=== PATIENT | female | born 1965 | race Caucasian/White ===

== ENCOUNTER 2020-08-24 15:08 | Inpatient (IN) | payer BC ==
[~2020-08-24] VITALS: Ht 165.1 cm; Wt 108.9 kg
[~2020-08-24 15:08] MED LIST: CEFD300C PO; CYAN25003 PO; GABA-689 PO; HYDR12.58 PO; LOSA-73 PO; MULT-445 PO; NAPR-514 PO; Oxycodone Hcl/Acetaminophen PO
[2020-08-24 16:13] VITALS: BP 133/80
[2020-08-24] MEDS ORDERED: BUSP10TA PO (16:15)
[2020-08-24] MEDS ORDERED: VENL150C6 PO (16:15)
[2020-08-24] MEDS ORDERED: LISI10TA16 PO (16:15)
--- NOTE | 2020-08-24 16:54 | PDOC1 ---
History and Physical Date of Admission Date of Admission DATE: 08/24/20 TIME: 16:54 Identification/Chief Complaint Chief Complaint Left 3rd distal phalanx osteomyelitis Source Source: Chart review, Patient History of Present Illness History of Present Illness Ms Brewer is a 55 yo F w/ PMHx HTN, anxiety with depression, morbid obesity, endometriosis s/p multiple abdominal surgeries who is being directly admitted to [facility] for cellulitis and osteomyelitis of her 3rd toe distal phalanx. She notes she has been having liquid "squirt" from the end of her third toe when she applies pressure or walks on it for several weeks 05/24/2020 was treated for ingrown 3rd and 5th toenails with podiatry with good initial response but slow healing, therefore underwent arterial studies and testing for diabetes which were negative. She has been on multiple rounds of antibiotics, alternating keflex, then doxycycline, then bactrim. She normally does not cover the wound while wearing shoes and does allow her 3 dogs to lay on her bare feet while sleeping regularly. Nearly a month ago had office visit concerning for bone visible in wound bed and had xray with no clear evidence of osteomyelitis and had MRI ordered but was delayed on getting her MRI until 08/23/2020 and then was quickly given referral to wound care at [facility] and shows me a referral to Dr. Rivera from [place] in a week. She was distraught about the diagnosis of osteomyelitis on MRI and contacted her car audio installer who recommended surgical debridement and offered direct admission for further care. Fleas and dog hair removed, wound cleaned bedside and dressed. Discussed in depth with podiatry and ordered stat MRI report from [facility] and cultures Past Medical History Cardiovascular: HTN Pulmonary: No pertinent hx GI: GERD Heme/Onc: No pertinent hx Hepatobiliary: No pertinent hx Psych: Anxiety, Depression Rheumatologic: No pertinent hx Past Surgical History Past Surgical History: Cholecystectomy, , Hernia Repair, Hysterectomy (partial, endometriosis), Other Family History Family History: Hypertension Social History Smoke: No ALCOHOL: none Current Medications Current Medications Active Scripts Active Reported Buspirone Hcl 10 Mg Tablet 2 Tab PO DAILY08 Venlafaxine Hcl Er (Venlafaxine Hcl) 150 Mg Cap.er.24h 1 Cap PO DAILY Lisinopril 10 Mg Tablet 1 Tab PO DAILY Vitamin B-12 (Cyanocobalamin (Vitamin B-12)) 2,500 Mcg Tab.subl 2,500 Mcg PO DAILY Multivitamins (Multivitamin) 1 Each Tablet 1 Tab PO DAILY Naproxen 500 Mg Tablet 500 Mg PO PRN BID PRN Losartan Potassium 50 Mg Tablet 50 Mg PO DAILY Hydrochlorothiazide Tablet (Hydrochlorothiazide) 12.5 Mg Tablet 12.5 Mg PO DAILY Allergies Allergies: Coded Allergies: Penicillins (Verified Allergy, Intermediate, 03/16/14) ROS General: No: Chills, Night Sweats, Fatigue, Malaise, Appetite, Other PSYCHOLOGICAL ROS: YES: Anxiety; No: Behavioral Disorder, Concentration difficultie, Decreased libido, Depression, Disorientation, Hallucinations, Hostility, Irritablity, Memory difficulties, Mood Swings, Obsessive thoughts, Physical abuse, Sexual abuse, Sleep disturbances, Suicidal ideation, Other Eyes: No Blurry vision, No Decreased vision, No Double vision, No Dry eyes, No Excessive tearing, No Eye Pain, No Itchy Eyes, No Loss of vision, No Photophobia, No Scotomata, No Uses contacts, No Uses glasses, No Other HEENT: No: Heacaches, Visual Changes, Hearing change, Nasal congestion, Nasal discharge, Oral lesions, Sinus pain, Sore Throat, Epistaxis, Sneezing, Snoring, Tinnitus, Vertigo, Vocal changes, Other ALLERGY AND IMMUNOLOGY: No: Hives, Insect Bite Sensitivity, Itchy/Watery Eyes, Nasal Congestion, Post Nasal Drip, Seasonal Allergies, Other Hematological and Lymphatic: No: Bleeding Problems, Blood Clots, Blood Transfusions, Brusing, Night Sweats, Pallor, Swollen Lymph Nodes, Other ENDOCRINE: No: Breast Changes, Galactorrhea, Hair Pattern Changes, Hot Flashes, Malaise/lethargy, Mood Swings, Palpitations, Polydipsia/polyuria, Skin Changes, Temperature Intolerance, Unexpected Weight Changes, Other Breast: No New/Changing Breast Lumps, No Nipple changes, No Nipple discharge, No Other Respiratory: No: Cough, Hemoptysis, Orthopnea, Pleuritic Pain, Shortness of breath, SOB with excertion, Sputum Changes, Stridor, Tachypnea, Wheezing, Other Cardiovascular: No Chest Pain, No Palpitations, No Orthopnea, No Paroxysmal Noc. Dyspnea, No Edema, No Lt Headedness, No Other Gastrointestinal: No Nausea, No Vomiting, No Abdominal Pain, No Diarrhea, No Constipation, No Melena, No Hematochezia, No Other Genitourinary: No Dysuria, No Frequency, No Incontinence, No Hematuria, No Retention, No Discharge, No Urgency, No Pain, No Flank Pain, No Other, No , No , No , No , No , No , No Musculoskeletal: No Gait Disturbance, No Joint Pain, No Joint Stiffness, No Joint Swelling, No Muscle Pain, No Muscular Weakness, No Pain In:, No Swelling In:, No Other Neurological: No Behavorial Changes, No Bowel/Bladder ControlChng, No Confusion, No Dizziness, No Gait Disturbance, No Headaches, No Impaired Coord/balance, No Memory Loss, No Numbness/Tingling, No Seizures, No Speech Problems, No Tremors, No Visual Changes, No Weakness, No Other Skin: No Dry Skin, No Eczema, No Hair Changes, No Lumps, No Mole Changes, No Mottling, No Nail Changes, No Pruritus, No Rash, No Skin Lesion Changes, No Other, No Acne Physical Exam General: Alert, Oriented X3, Cooperative, No acute distress HEENT: Atraumatic, PERRLA, EOMI, Mucous membr. moist/pink Lungs: Clear to auscultation, Normal air movement Heart: S1S2, RRR, no thrills, no rubs, no gallops, no murmurs Abdomen: Normal bowel sounds, Soft, No tenderness, No hepatosplenomegaly, No masses Rectal Exam: not examined Extremities: No clubbing, No cyanosis, No edema, Normal pulses, No tenderness/swelling Skin: No rashes, No breakdown, No significant lesion, Other (3rd digit nail bed with positive probe to bone and localized erythema and edema, 5th nail bed with scar tissue, no erythema) Neuro: Normal gait, Normal speech, Strength at 5/5 X4 ext, Normal tone, Sensation intact, Cranial nerves 3-12 NL, Reflexes 2+ Psych/Mental Status: Mental status NL, Mood NL Vitals Vitals Vital Signs Date Time Temp Pulse Resp B/P (MAP) Pulse Ox O2 Delivery O2 Flow Rate FiO2 08/24/20 16:13 98.4 99 18 133/80 (97) 95 Room Air 98.4 VTE Prophylaxis Ordered VTE Prophylaxis Devices: Yes VTE Pharmacological Prophylaxi: Yes Assessment/Plan Assessment/Plan A/P: Left 3rd toe distal phalanx osteomyelitis and cellulitis - sinus tract obvious on examination, able to expectorate fluid bedside. No DM2, no PVD. There are reports of ingrown nails associated with osteomyelitis, unlikely for chemical matrixectomy as causative agent. Advised animals near her wound likely played a role in delayed healing. She was on bactrim. Will consult ID, confirm sensitivities to prior culture on Friday, today and guide therapy from there HTN - cont home meds. advised outpatient to consider change from effexor given concomitant HTN Anxiety with depression - cont home meds. Morbid obesity - counseled on lifestyle modification Endometriosis s/p multiple abdominal surgeries - stable s/p hysterectomy FEN - regular diet, NPO after midnight PPX - ambulatory, low risk CODE - FULL Dispo - inpatient for osteomyelitis failing outpatient therapy. Surrogate decision maker is her , Jaren Brewer Justifications for Admission Other Justification MIKAELA ALBERT MD Aug 24, 2020 16:54
[2020-08-24] MEDS ORDERED: CALCIUM CARBONATE 500 MG TAB.CHEW PO PRN (17:00)
[2020-08-24] MEDS ORDERED: ONDANSETRON PF 4 MG/2 ML VIAL. IVP PRN (17:00)
[2020-08-24] MEDS ORDERED: HYDROcodone/APAP 5/325MG 1 TAB TABLET PO PRN (17:00)
[2020-08-24] MEDS ORDERED: ACETAMINOPHEN 325 MG TABLET. PO PRN (17:00)
[2020-08-24] MEDS ORDERED: MAGNESIUM HYDROXIDE 2,400 MG/30 ML ORAL.SUSP. PO PRN (17:00)
[2020-08-24] MEDS ORDERED: MORPHINE SULFATE 2 MG/ML VIAL. IV PRN (17:00)
[2020-08-24] MEDS ORDERED: IV RINGERS,LACTATED 1000ML 1,000 ML IV SCH (17:00)
[2020-08-24] MEDS ORDERED: ZOLPIDEM 5 MG TABLET. PO PRN (17:00)
--- NOTE | 2020-08-24 17:29 | PDOC2 ---
CONSULT Date of Consult Date of Consult DATE: 08/24/20 TIME: 17:00 Reason for Consult Reason for Consult: OSTEOMYELITIS 3RD TOE DISTAL PHALANX LEFT Referring Physician Referring Physician: BETY Identification/Chief Complaint Chief Complaint ulceration 3rd toe with cellulitis and osteomyelitis Source Source: Patient History of Present Illness Reason for Visit: 55 year old female admitted to [facility] for IV antibiotics for treatment of cellulitis and osteomyelitis 3rd toe distal phalanx. She had chemical matrixectomy to the 3rd and 5th digit nails May 2020 and had delayed healing. Arterial dopplers showed no PVD Patient with no history of smoking, DM, or autoimmune disease. She was treated with po antibiotics. Patient admits to letting the wound open to air and was last seen on 08/01/20 in the office noted dog hair to the nail bed and positive probe to bone. Xrays were negative for periosteal reaction, thus [facility] She called the next day 08/02/20 and was informed her insurance was out of network. She then contacted her insurance and was scheduled at [facility] for MRI which was performed 08/23/20. She saw her PCP earlier this week and CBC was within normal limits and wound culture was obtained. She then saw wound care clinic at [facility] and was referred to Dr. Rivera but would not be seen until next Friday. She called the office today and upon hearing the confirmed diagnosis of osteomyelitis and reports of pustular drainage, recommended direct admission for IV antibiotics. Past Medical History Cardiovascular: HTN Pulmonary: No pertinent hx GI: GERD Heme/Onc: No pertinent hx Hepatobiliary: No pertinent hx Rheumatologic: Fibromyalgia Past Surgical History Past Surgical History: Cholecystectomy, , Other Family History Family History: No Significant Social History ALCOHOL: none Current Medications Current Medications Current Medications Buspirone HCl (Buspar) 20 mg DAILY08 PO ; Start 08/25/20 at 08:00 Losartan Potassium (Cozaar) 50 mg DAILY PO ; Start 08/25/20 at 09:00 Multivitamins (Thera M Plus) 1 tab DAILY PO ; Start 08/25/20 at 09:00 Non-Formulary Medication (Venlafaxine Hcl (Venlafaxine Hcl Er)) 1 cap DAILY PO ; Start 08/25/20 at 09:00; Status UNV Ringer's Solution 1,000 ml @ 75 mls/hr [id number] IV ; Start 08/24/20 at 17:00; Stop 08/25/20 at 06:19 Ondansetron HCl (Zofran) 4 mg PRN Q6HRS PRN IVP NAUSEA/VOMITING; Start 08/24/20 at 17:00 Calcium Carbonate/ Glycine (Tums) 500 mg PRN Q3HRS PRN PO UPSET STOMACH; Start 08/24/20 at 17:00 Zolpidem Tartrate (Ambien) 5 mg PRN QHS PRN PO INSOMNIA, MAY REPEAT IN 1HR; Start 08/24/20 at 17:00 Morphine Sulfate (Morphine Sulfate) 1 mg PRN Q1HR PRN IV PAIN; Start 08/24/20 at 17:00 Acetaminophen/ Hydrocodone Bitart (Lortab 5/325) 1 tab PRN Q4HRS PRN PO MILD PAIN 1-3; Start 08/24/20 at 17:00; Status UNV Acetaminophen (Tylenol) 650 mg PRN Q6HRS PRN PO Headaches, Temp > 101.5F; Start 08/24/20 at 17:00; Status UNV Magnesium Hydroxide (Milk Of Magnesia) 2,400 mg PRN Q12HR PRN PO CONSTIPATION; Start 08/24/20 at 17:00; Status UNV Active Scripts Active Reported Buspirone Hcl 10 Mg Tablet 2 Tab PO DAILY08 Venlafaxine Hcl Er (Venlafaxine Hcl) 150 Mg Cap.er.24h 1 Cap PO DAILY Lisinopril 10 Mg Tablet 1 Tab PO DAILY Vitamin B-12 (Cyanocobalamin (Vitamin B-12)) 2,500 Mcg Tab.subl 2,500 Mcg PO DAILY Multivitamins (Multivitamin) 1 Each Tablet 1 Tab PO DAILY Naproxen 500 Mg Tablet 500 Mg PO PRN BID PRN Losartan Potassium 50 Mg Tablet 50 Mg PO DAILY Hydrochlorothiazide Tablet (Hydrochlorothiazide) 12.5 Mg Tablet 12.5 Mg PO DAILY Allergies Allergies: Coded Allergies: Penicillins (Verified Allergy, Intermediate, 03/16/14) ROS General: No: Chills, Night Sweats, Fatigue, Malaise, Appetite, Other Skin: Yes Nail Changes Physical Exam Physical Exam lower extremity : skin is warm, dry, supple. normal turgor. hair is present to feet. full thickness ulceration to 3rd digit nail bed with positive probe to bone and localized erythema and edema. no ascending cellulitis. no active drainage, but patient reports copious pustular drainage. 5th digit nails also status post chemical matrixectoy and note dry serous crust with localized erythema and edema to distal phalanx. DP and PT 2/4 CFT is less than 3 seconds. Sensation is intact to light touch. positive pain on palpation to the 3rd toe left foot. General: Alert, Oriented X3 Vitals VITALS Vital Signs Date Time Temp Pulse Resp B/P (MAP) Pulse Ox O2 Delivery O2 Flow Rate FiO2 08/24/20 16:51 Room Air 08/24/20 16:13 98.4 99 18 133/80 (97) 95 98.4 Assessment/Plan Assessment/Plan 55 year old female status post chemical matrixectomy 3rd and 5th digit nails left foot with cellulitis and osteomyelitis 3rd toe -ID on consult, will await wound cultures taken in PCP 2 days prior. -Patient is wanting to proceed with PICC line and 6 weeks of IV antibiotics. -Discussed distal phalanx resection of 3rd toe with closure. discussed post op course of 2 weeks in surgical shoe until sutures removed and skin incision healed. Discussed risks, benefits and complications to include delayed or non healing need for further surgery, loss of toe/foot/limb/life, DVT, PE, infection, shortened toe/floppy toe/stiff toe, transfer lesion -Will begin local wound care with light betadine gauze bandaid daily. -Will obtain MRI report from [facility] and discuss with radiology any findings to the 5th digit distal phalanx. -Discussed with hospitalist in detail. Labs pending MALATHI BRAN DPM Aug 24, 2020 17:29
[2020-08-24] MEDS: VENLAFAXINE 50 MG TABLET. PO SCH (18:17)
[2020-08-24 19:35] VITALS: BP 150/71
--- NOTE | 2020-08-24 21:47 | NUR ---
no drainage from affected toe, wound culture specimen unable to collect at this time.
[2020-08-24 23:05] VITALS: BP 129/66
[2020-08-25 03:17] VITALS: BP 95/68
[2020-08-25 07:00] VITALS: BP 134/78
[2020-08-25 07:50] LABS: BASO % 0 % (0-3); EOS % 1 % (0-3); HEMATOCRIT 36.4 % (36.0-47.0); HEMOGLOBIN 12.3 g/dL (12.0-15.5); LYMPH # 1.4 x10^3/uL (1.0-4.8); LYMPH % 27 % (24-48); MEAN CORPUSCULAR HEMOGLOBIN 28 pg (25-35); MEAN CORPUSCULAR HGB CONC 34 g/dL (31-37); MEAN CORPUSCULAR VOLUME 83 fL (79-100); MONO # 0.4 x10^3/uL (0.0-1.1); MONO % 7 % (0-9); NEUT # 3.4 x10^3/uL (1.8-7.7); NEUT % 65 % (31-73); PLATELET COUNT 246 x10^3/uL (140-400); RED BLOOD COUNT 4.39 x10^6/uL (3.50-5.40); RED CELL DISTRIBUTION WIDTH 15.5 % (11.5-14.5); WHITE BLOOD COUNT 5.3 x10^3/uL (4.0-11.0)
--- NOTE | 2020-08-25 07:50 | PDOC ---
[employer] PROGRESS NOTE Date of Service DOS: DATE: 08/25/20 TIME: 07:30 Chief Complaint Chief Complaint A/P: Left 3rd toe distal phalanx osteomyelitis and cellulitis - sinus tract obvious on examination, able to expectorate fluid bedside. No DM2, no PVD. There are reports of ingrown nails associated with osteomyelitis, unlikely for chemical matrixectomy as causative agent. Advised animals near her wound likely played a role in delayed healing. She was on bactrim. Will consult ID, confirm sensitivities to prior culture on Friday, today and guide therapy from there HTN - cont home meds. advised outpatient to consider change from effexor given concomitant HTN Anxiety with depression - cont home meds. Morbid obesity - counseled on lifestyle modification Endometriosis s/p multiple abdominal surgeries - stable s/p hysterectomy Tick bite - noted off her yesterday, not noted initially by patient. She removed it prior to admission FEN - regular diet, NPO after midnight PPX - ambulatory, low risk CODE - FULL Dispo - inpatient for osteomyelitis failing outpatient therapy. Surrogate decision maker is her , Jaren Brewer History of Present Illness History of Present Illness Ms Brewer is a 55 yo F w/ PMHx HTN, anxiety with depression, morbid obesity, endometriosis s/p multiple abdominal surgeries who is being directly admitted to [facility] for cellulitis and osteomyelitis of her 3rd toe distal phalanx. She notes she has been having liquid "squirt" from the end of her third toe when she applies pressure or walks on it for several weeks 05/24/2020 was treated for ingrown 3rd and 5th toenails with podiatry with good initial response but slow healing, therefore underwent arterial studies and testing for diabetes which were negative. She has been on multiple rounds of antibiotics, alternating keflex, then doxycycline, then bactrim. She normally does not cover the wound while wearing shoes and does allow her 3 dogs to lay on her bare feet while sleeping regularly. Nearly a month ago had office visit concerning for bone visible in wound bed and had xray with no clear evidence of osteomyelitis and had MRI ordered but was delayed on getting her MRI until 08/23/2020 and then was quickly given referral to wound care at [facility] and shows me a referral to Dr. Rivera from [place] in a week. She was distraught about the diagnosis of osteomyelitis on MRI and contacted her clinical manager home care who recommended surgical debridement and offered direct admission for further care. Fleas and dog hair removed, wound cleaned bedside and dressed. Discussed in depth with podiatry and ordered stat MRI report from [facility] and cultures Notes a tick bite. Afebrile. Plan for OR tomorrow morning. Vitals/I&O Vitals/I&O: Vital Signs Date Time Temp Pulse Resp B/P (MAP) Pulse Ox O2 Delivery O2 Flow Rate FiO2 08/25/20 03:17 97.8 75 18 95/68 (77) 98 Room Air 97.8 I & O 08/24/20 08/24/20 08/25/20 15:00 23:00 07:00 Intake Total 200 ml 240 ml Balance 200 ml 240 ml Physical Exam General: Alert, Oriented X3, Cooperative, No acute distress Abdomen: Normal bowel sounds, Soft, No tenderness, No hepatosplenomegaly, No masses Extremities: No clubbing, No cyanosis, No edema, Normal pulses, No tenderness/swelling Skin: No rashes, No breakdown, No significant lesion, Other (3rd digit nail bed with positive probe to bone and localized erythema and edema, 5th nail bed with scar tissue, no erythema) Labs Labs: Laboratory Tests Test 08/24/20 22:30 Erythrocyte Sedimentation Rate 15 (0-25) C-Reactive Protein, Quantitative 18.5 mg/L (0-3.3) Comment Review of Relevant I have reviewed the following items tony (where applicable) has been applied. Medications: Current Medications Medications (Trade) Dose Ordered Sig/Ivis Route PRN Reason Start Time Stop Time Status Last Admin Dose Admin Ringer's Solution 1,000 ml @ 75 mls/hr [id number] IV 08/24/20 17:00 08/25/20 06:19 DC 08/24/20 17:00 Justifications for Admission Other Justification MIKAELA ALBERT MD Aug 25, 2020 07:50
[2020-08-25] MEDS ORDERED: busPIRone 10 MG TABLET. PO SCH (08:00)
[2020-08-25 08:11] LABS: CALCIUM 8.5 mg/dL (8.5-10.1); CREATININE 0.8 mg/dL (0.6-1.0); POTASSIUM 3.5 mmol/L (3.5-5.1)
[2020-08-25] MEDS ORDERED: MULTIVITAMIN with MINERAL TABLET. PO SCH (09:00)
[2020-08-25] MEDS ORDERED: LOSARTAN POTASSIUM 50 MG TABLET. PO SCH (09:00)
[2020-08-25] MEDS: VENLAFAXINE 50 MG TABLET. PO SCH ×2 (09:37→14:29)
--- NOTE | 2020-08-25 09:46 | NUR ---
SW following. Discussed with RN, pt from home, room air, NPO. ID, wound care and podiatry following. Pt was on roasterman IV abx at home - will need to continue. SW awaiting further plan of care. SW will continue to follow.
[2020-08-25 11:00] VITALS: BP 138/69
--- NOTE | 2020-08-25 13:13 | PDOC ---
Date of Service: DATE: 08/25/20 TIME: 13:06 Progress Note: Patient seen bedside resting comfortably. She notes intermittent shooting pain to the 3rd toe. She has spoken with ID and hospitalist and would like to proceed with resection of distal phalanx 3rd toe left Physical exam: full thickness ulceration to 3rd toe nail bed with bone exposed. left no active drainage. localized erythema and edema. sensation intact to light touch. CFT is 3 sec. Positive pain on palpation to the 3rd toe left foot. Labs reviewed CRP 18.6 a/p 55 y ear old female with osteomyelitis 3rd toe left foot -Patient would like to proceed with resection of 3rd toe distal phalanx. Again discussed alternate treatment options to include 6 weeks of IV antibiotics and risks/benefits complications of surgery to include delayed or non healing, need for further surgery, loss of toe/foot/limb/life, numbness/tingling, phantom pain, CRPS, DVT, PE, floppy toe, flail toe, lack of toe purchase, shortening of toe transfer lesion. All questions answered -NPO after midnight Patient scheduled at 8:30am 08/26/20. -OK for discharge per ID recommendations after surgery tomorrow unless further IV antibiotics warranted. -Awaiting Lab Viral wound culture from PCP possibly today or tomorrow. -Follow up in the office in 5-7 days after procedure. Justifications for Admission Other Justification MALATHI BRAN DPM Aug 25, 2020 13:13
[2020-08-25] MEDS ORDERED: VANCOMYCIN PER PHARMACY MC PRN (13:30)
[2020-08-25] MEDS ORDERED: VANCOMYCIN 2 GM in IV NORMAL SALINE 500ML BAG 500 ML IV ONE (14:00)
[2020-08-25 15:00] VITALS: BP 156/84
[2020-08-25] MEDS ORDERED: cefTRIAXone IV Push 2 GM VIAL. IVP SCH (15:00)
--- NOTE | 2020-08-25 16:03 | NUR ---
Wound Care: Patient seen per wound care consult. Patient is being seen by Dr. Andrade with orders for "Betadine gauze daily". Wound cleansed and assessed. Betadine and gauze applied as ordered. Patient stated she will be having surgery with [facility]. Since patient is being seen and there are orders to follow. Wound care will sign off at this time.
--- NOTE | 2020-08-25 16:05 | NUR ---
Pharmacy Vancomycin Dosing Note S:Consulted to monitor and dose vancomycin started 08/25/20. O:LEA GARCIA is a 55 year old F with Cellulitis Osteomyelitis . Height: 5 feet, 5 inches Weight: 108.288318 kg [place] Body Weight: 57.00 Adjusted Body Weight: 77.76 Dosing Weight: Actual Other Antibiotics: Rocephin 2gm q24hrs LABS: Last BUN: 11 Last Creatinine: 0.8 Creatinine Clearance: 100 mL/min Last WBC: 5.3 Last Procalcitonin: Tmax (past 24 hours): 98.2 Microbiology: I/O: 440/ Drug Levels: Last level: on at Last dose given 08/25/20 at 1429 Vancomycin Dosing: Loading Dose: 2000 mg x1 Dosing Weight: Actual Target Trough: 15-20 A: Based on weight and CrCl: P: 1. Vancomycin 2000mg, followed by Vancomycin 1750 mg IV q12h. 2. Follow up Trough level on 08/27/20 at 1500. 3. Pharmacy will continue to monitor, follow and adjust therapy as needed. Luis Felipe Maier [facility], 08/25/20 [id number]
[2020-08-25] MEDS ORDERED: LEVO750T5 PO (18:12)
--- NOTE | 2020-08-25 18:37 | PDOC3 ---
Discharge Summary Visit Information Date of Admission: Aug 24, 2020 Date of Discharge: Aug 25, 2020 Admitting Diagnosis: left 3rd toe distal phalanx osteomyelitis Final Diagnosis left 3rd toe distal phalanx osteomyelitis Brief Hospital Course Allergies Allergies Coded Allergies Type Severity Reaction Last Updated Verified Penicillins Allergy Intermediate 03/16/14 Yes Vital Signs Vital Signs Date Time Temp Pulse Resp B/P (MAP) Pulse Ox O2 Delivery O2 Flow Rate FiO2 08/25/20 15:00 97.8 81 16 156/84 (108) 98 Room Air 97.8 Lab Results Laboratory Tests Test 08/24/20 22:30 08/25/20 07:20 Erythrocyte Sedimentation Rate 15 (0-25) C-Reactive Protein, Quantitative 18.5 mg/L (0-3.3) White Blood Count 5.3 x10^3/uL (4.0-11.0) Red Blood Count 4.39 x10^6/uL (3.50-5.40) Hemoglobin 12.3 g/dL (12.0-15.5) Hematocrit 36.4 % (36.0-47.0) Mean Corpuscular Volume 83 fL (79-100) Mean Corpuscular Hemoglobin 28 pg (25-35) Mean Corpuscular Hemoglobin Concent 34 g/dL (31-37) Red Cell Distribution Width 15.5 % (11.5-14.5) Platelet Count 246 x10^3/uL (140-400) Neutrophils (%) (Auto) 65 % (31-73) Lymphocytes (%) (Auto) 27 % (24-48) Monocytes (%) (Auto) 7 % (0-9) Eosinophils (%) (Auto) 1 % (0-3) Basophils (%) (Auto) 0 % (0-3) Neutrophils # (Auto) 3.4 x10^3/uL (1.8-7.7) Lymphocytes # (Auto) 1.4 x10^3/uL (1.0-4.8) Monocytes # (Auto) 0.4 x10^3/uL (0.0-1.1) Eosinophils # (Auto) 0.0 x10^3/uL (0.0-0.7) Basophils # (Auto) 0.0 x10^3/uL (0.0-0.2) Sodium Level 143 mmol/L (136-145) Potassium Level 3.5 mmol/L (3.5-5.1) Chloride Level 105 mmol/L (98-107) Carbon Dioxide Level 31 mmol/L (21-32) Anion Gap 7 (6-14) Blood Urea Nitrogen 11 mg/dL (7-20) Creatinine 0.8 mg/dL (0.6-1.0) Estimated GFR (Cockcroft-Gault) 75.0 Glucose Level 118 mg/dL (70-99) Calcium Level 8.5 mg/dL (8.5-10.1) Laboratory Tests Test 08/24/20 22:30 08/25/20 07:20 Erythrocyte Sedimentation Rate 15 (0-25) C-Reactive Protein, Quantitative 18.5 mg/L (0-3.3) White Blood Count 5.3 x10^3/uL (4.0-11.0) Red Blood Count 4.39 x10^6/uL (3.50-5.40) Hemoglobin 12.3 g/dL (12.0-15.5) Hematocrit 36.4 % (36.0-47.0) Mean Corpuscular Volume 83 fL (79-100) Mean Corpuscular Hemoglobin 28 pg (25-35) Mean Corpuscular Hemoglobin Concent 34 g/dL (31-37) Red Cell Distribution Width 15.5 % (11.5-14.5) Platelet Count 246 x10^3/uL (140-400) Neutrophils (%) (Auto) 65 % (31-73) Lymphocytes (%) (Auto) 27 % (24-48) Monocytes (%) (Auto) 7 % (0-9) Eosinophils (%) (Auto) 1 % (0-3) Basophils (%) (Auto) 0 % (0-3) Neutrophils # (Auto) 3.4 x10^3/uL (1.8-7.7) Lymphocytes # (Auto) 1.4 x10^3/uL (1.0-4.8) Monocytes # (Auto) 0.4 x10^3/uL (0.0-1.1) Eosinophils # (Auto) 0.0 x10^3/uL (0.0-0.7) Basophils # (Auto) 0.0 x10^3/uL (0.0-0.2) Sodium Level 143 mmol/L (136-145) Potassium Level 3.5 mmol/L (3.5-5.1) Chloride Level 105 mmol/L (98-107) Carbon Dioxide Level 31 mmol/L (21-32) Anion Gap 7 (6-14) Blood Urea Nitrogen 11 mg/dL (7-20) Creatinine 0.8 mg/dL (0.6-1.0) Estimated GFR (Cockcroft-Gault) 75.0 Glucose Level 118 mg/dL (70-99) Calcium Level 8.5 mg/dL (8.5-10.1) Brief Hospital Course Ms Brewer is a 55 yo F w/ PMHx HTN, anxiety with depression, morbid obesity, endometriosis s/p multiple abdominal surgeries who is being directly admitted to [facility] for cellulitis and osteomyelitis of her 3rd toe distal phalanx. She notes she has been having liquid "squirt" from the end of her third toe when she applies pressure or walks on it for several weeks 05/24/2020 was treated for ingrown 3rd and 5th toenails with podiatry with good initial response but slow healing, therefore underwent arterial studies and testing for diabetes which were negative. She has been on multiple rounds of antibiotics, alternating keflex, then doxycycline, then bactrim. She normally does not cover the wound while wearing shoes and does allow her 3 dogs to lay on her bare feet while sleeping regularly. Nearly a month ago had office visit concerning for bone visible in wound bed and had xray with no clear evidence of osteomyelitis and had MRI ordered but was delayed on getting her MRI until 08/23/2020 and then was quickly given referral to wound care at [facility] and shows me a referral to Dr. Rivera from [place] in a week. She was distraught about the diagnosis of osteomyelitis on MRI and contacted her obstetrics nurse who recommended surgical debridement and offered direct admission for further care. Fleas and dog hair removed, wound cleaned bedside and dressed. Discussed in depth with podiatry and ordered stat MRI report from [facility] and cultures Notes a tick bite, removed tick on 08/24 prior to coming in. Afebrile. Plan for OR on 08/26/2020 in the morning, however patient noted no out of network insurance coverage and requested to be discharged. Given prescription for levaquin and referral to in [facility] hospitals [facility], [facility], [facility], [facility] and [facility] As this is non-emergent she is stable and safe for discharge home into the care of her . Given wound care instructions for dry gauze dressing 3x daily. Consults: ID and podiatry Problem list: Left 3rd toe distal phalanx osteomyelitis and cellulitis - sinus tract obvious on examination, able to expectorate fluid bedside. No DM2, no PVD. There are reports of ingrown nails associated with osteomyelitis, unlikely for chemical matrixectomy as causative agent. Advised animals near her wound likely played a role in delayed healing. She was on bactrim. sensitivities to prior cultures pending HTN - cont home meds. advised outpatient to consider change from effexor given concomitant HTN Anxiety with depression - cont home meds. Morbid obesity - counseled on lifestyle modification Endometriosis s/p multiple abdominal surgeries - stable s/p hysterectomy Tick bite - noted off her yesterday, not noted initially by patient. She removed it prior to admission not on more than 8 hours and no WBC changes, no indication for doxycycline Greater than 30 minutes spent on d/c home Discharge Information Condition at Discharge: Improved Follow Up: Weeks (1) Disposition/Orders: D/C to Home Scheduled Buspirone Hcl (Buspirone Hcl) 10 Mg Tablet, 2 TAB PO DAILY08 for anxiety, #60 Ref 1 (Reported) Entered as Reported by: PHOENIX MARTIN on 08/24/201614 Last Taken: Unknown Dose on 08/24/20 Last Action: Continued on 08/24/201653 by MIKAELA ALBERT MD Cyanocobalamin (Vitamin B-12) (Vitamin B-12) 2,500 Mcg Tab.subl, 2,500 MCG PO DAILY, (Reported) Entered as Reported by: ZENON MARIA on 03/14/14 1200 Last Taken: Unknown Dose on 08/24/20 Last Action: Reviewed on 08/24/201614 by PHOENIX MARTIN Hydrochlorothiazide (Hydrochlorothiazide Tablet) 12.5 Mg Tablet, 12.5 MG PO DAILY for DIURETIC, Ref 0 (Reported) Entered as Reported by: ZENON MARIA on 03/14/14 1154 Last Taken: Unknown Dose on 08/24/20 Last Action: Reviewed on 08/24/201614 by PHOENIX MARTIN Levofloxacin (Levofloxacin) 750 Mg Tablet, 1 TAB PO DAILY for Osteomyelitis for 10 Days, #10 Prescribed by: MIKAELA ALBERT MD on 08/25/202 Losartan Potassium (Losartan Potassium) 50 Mg Tablet, 50 MG PO DAILY, (Reported) Entered as Reported by: ZENON MARIA on 03/14/14 1154 Last Taken: Unknown Dose on 08/24/20 Last Action: Continued on 08/24/201653 by MIKAELA ALBERT MD Multivitamin (Multivitamins) 1 Each Tablet, 1 TAB PO DAILY, #30 Ref 2 (Reported) Entered as Reported by: ZENON MARIA on 03/14/14 1157 Last Taken: Unknown Dose on 08/24/20 Last Action: Converted on 08/24/201653 by MIKAELA ALBERT MD Venlafaxine Hcl (Venlafaxine Hcl Er) 150 Mg Cap.er.24h, 1 CAP PO DAILY for depression, #30 Ref 1 (Reported) Entered as Reported by: PHOENIX MARTIN on 08/24/201614 Last Taken: Unknown Dose on 08/24/20 Last Action: Converted on 08/24/201653 by MIKAELA ALBERT MD Scheduled PRN Naproxen (Naproxen) 500 Mg Tablet, 500 MG PO PRN BID PRN for PAIN, (Reported) Entered as Reported by: ZENON MARIA on 03/14/14 1156 Last Taken: Unknown Dose on 08/17/20 Last Action: Reviewed on 08/24/201614 by PHOENIX MARTIN Discontinued Medications Gabapentin (Gabapentin ) 400 Mg Capsule, 400 MG PO HS, (Reported) Entered as Reported by: ZENON MARIA on 03/14/14 1156 Last Action: Discontinued on 08/24/201614 by PHOENIX MARTIN Lisinopril (Lisinopril) 10 Mg Tablet, 1 TAB PO DAILY for htn, #30 Ref 5 (Reported) Entered as Reported by: PHOENIX MARTIN on 08/24/201614 Last Taken: Unknown Dose on 08/24/20 Last Action: New Order on 08/24/201614 by PHOENIX MARTIN Justicifation of Admission Dx: Justifications for Admission: Justification of Admission Dx: Yes MIKAELA ALBERT MD Aug 25, 2020 18:37
--- NOTE | 2020-08-25 18:45 | NUR ---
Pt discharged from facility and will follow up with stem threshing machine operator re: possible partial toe amputation. Our facility is not in network with pts insurance. List of covered hospitals given to pt and she will follow up. Discharge teaching done and both and pt verbalized understanding.
--- NOTE | 2020-08-25 23:12 | CONS ---
DATE OF CONSULTATION: 08/25/2020 REQUESTING PHYSICIAN: Dr. Kin Garcia REASON FOR CONSULTATION: Left third toe osteomyelitis. HISTORY OF PRESENT ILLNESS: This is a 55-year-old female who had undergone toenail removal in May. Since then, the patient is having problem, she has been not healing, at least 3 or 4 rounds of oral antibiotics were given and she continued to drain, hence MRI was done which showed osteomyelitis and was admitted for further management. The patient denies any fever, denies any nausea, vomiting, diarrhea. Denies any chest pain, shortness of breath, abdominal pain, urinary symptoms or bowel symptoms. PAST MEDICAL HISTORY: Positive for hypertension, gastroesophageal reflux disease, fibromyalgia, obesity and ingrown toenail hence the toenails were removed called chemical matricectomy. SOCIAL HISTORY: Negative for smoking, alcohol or drug use. ALLERGIES: LISTED ALLERGIC TO PENICILLIN. She does not remember or know what happened as a child. CURRENT MEDICATIONS: The patient is on no antibiotics. REVIEW OF SYSTEMS: As in HPI. All other systems reviewed are negative. PHYSICAL EXAMINATION: GENERAL: Alert, oriented female, not in any distress. VITAL SIGNS: Stable, afebrile. HEENT: Both pupils are round and reacting. No conjunctival lesion. No lesion in the mouth. NECK: Supple. No JVP. No lymphadenopathy. LUNGS: Clear. HEART: S1, S2 regular. ABDOMEN: Benign. EXTREMITIES: No edema or cyanosis. SKIN: Unremarkable except the left third toe is swollen. There is a hole in the nail bed that goes deep and there is a drainage coming out. NEUROLOGIC: Alert, awake, and appropriate. No focal neurologic deficit. LABORATORY AND DIAGNOSTIC DATA: White count is 5.3. Sed rate is 15. BUN and creatinine is normal. CRP is 18.5. Her MRI obtained from [facility] showed osteomyelitis of the third distal phalanx. IMPRESSION: 1. Osteomyelitis of the distal phalanx of the third toe. 2. Hypertension. 3. Gastroesophageal reflux disease. 4. Fibromyalgia. RECOMMENDATION: I had a long discussion with the patient about the options of IV antibiotics and take a chance if it heals. Since her problem started in May, there is no way to know whether this is acute or chronic osteomyelitis. There is a possibility that this is acute and it may get better, but she does not want to take that route. Second choice was a distal phalanx amputation, close it and move on. Since she is having a new job starting in a week or two, she decided she does not want to go with a prolonged route and it may not work, she would go with amputation and get it over with it and move on. Discussion with Dr. Garcia as well as discussion with Dr. Mcqueen done. Thank you very much Dr. Garcia and Dr. Mcqueen for giving me the opportunity to participate in this patient's care. BRANDYN/MILDRED DR: Junior TID: [id number]
[2020-08-26 02:10] LABS: HEMOGLOBIN A1C 6.3 % (4.8-5.6)
[2020-08-26] MEDS ORDERED: VANCOMYCIN 1.75 GM in IV NORMAL SALINE 500ML BAG 500 ML IV SCH (03:00)
[2020-08-26] MEDS ORDERED: HYDROmorphone 2 MG/ML VIAL IVP PRN (06:00)
[2020-08-26] MEDS ORDERED: fentaNYL PF VIAL 100 MCG/2 ML VIAL IVP PRN ×2 (06:00)
[2020-08-26] MEDS ORDERED: IV RINGERS,LACTATED 1000ML 1,000 ML IV SCH (06:00)
[2020-08-26] MEDS ORDERED: MORPHINE SULFATE 2 MG/ML VIAL. IVP PRN (06:00)
[2020-08-26] MEDS ORDERED: PROCHLORPERAZINE 10 MG/2 ML VIAL. IVP PRN (06:00)
== END 2020-08-25 18:35 | disposition home or self-care (01) | DRG 540 ==
LOC: 4 NORTH 15:08
PROVIDERS: ADMIT Internal Medicine; ATTEND Internal Medicine
DX: M86.172 Other acute osteomyelitis, left ankle and foot (principal); L03.116 Cellulitis of left lower limb; E66.01 Morbid (severe) obesity due to excess calories; F41.8 Other specified anxiety disorders; I10 Essential (primary) hypertension; K21.9 Gastro-esophageal reflux disease without esophagitis; M79.7 Fibromyalgia; Z82.49 Family history of ischemic heart disease and other diseases of the circulatory system; Z90.711 Acquired absence of uterus with remaining cervical stump; F32.9 Major depressive disorder, single episode, unspecified; Z88.0 Allergy status to penicillin; Z68.39 Body mass index [BMI] 39.0-39.9, adult
CPT/HCPCS: 36415; 80048; 83036; 85025; 85651; 86140; J0696; J3370; J7040; J7120; G0378

== ENCOUNTER 2020-08-28 09:27 | Emergency (ER) | payer BC ==
[~2020-08-28] VITALS: Ht 165.1 cm; Wt 53.0 kg
[~2020-08-28 09:27] MED LIST changes: +BUSP10TA PO; +LEVO750T5 PO; +LISI10TA16 PO; +VENL150C6 PO
--- NOTE | 2020-08-28 10:04 | ED.ADGEN ---
Past Medical History Past Medical History: Anxiety, Hypertension General Adult EDM: Chief Complaint: TOE PROBLEM HPI: HPI: Patient is a 55 -year-old female coming in for worsening toe pain. Patient was recently admitted for osteomyelitis of her left third toe. Is been taking Bactrim and levofloxacin. Patient was told to come back for worsening symptoms, her electrical contacts adjuster is worried about her losing her toe and it spreading beyond onto her foot. Has not been responding well enough to antibiotics. Plan is to proceed with amputation. 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 [] HENT: Normocephalic, atraumatic, bilateral external ears normal, nose normal. [] Eyes: PERRLA, conjunctiva normal, no discharge. [] Neck: No rigidity, supple, no stridor. [] Cardiovascular: Regular rate and rhythm, brisk cap refill [] Lungs & Thorax: Non labored symmetric respirations, no tachypnea or respiratory distress [] Abdomen: Soft, nondistended. Skin: Warm, dry, no erythema, no rash. Erythema to distal tip of left third toe [] Back: Unremarkable Extremities: No deformities, range of motion grossly intact, no lower extremity edema [] Neurologic: Alert and oriented X 3, no focal deficits noted. [] Psychologic: Affect normal, judgement normal, mood normal. [] Current Patient Data: Labs: Laboratory Tests Test 08/28/20 10:15 White Blood Count 5.4 x10^3/uL (4.0-11.0) Red Blood Count 4.28 x10^6/uL (3.50-5.40) Hemoglobin 12.1 g/dL (12.0-15.5) Hematocrit 35.6 % (36.0-47.0) L Mean Corpuscular Volume 83 fL (79-100) Mean Corpuscular Hemoglobin 28 pg (25-35) Mean Corpuscular Hemoglobin Concent 34 g/dL (31-37) Red Cell Distribution Width 15.4 % (11.5-14.5) H Platelet Count 223 x10^3/uL (140-400) Neutrophils (%) (Auto) 72 % (31-73) Lymphocytes (%) (Auto) 20 % (24-48) L Monocytes (%) (Auto) 7 % (0-9) Eosinophils (%) (Auto) 1 % (0-3) Basophils (%) (Auto) 0 % (0-3) Neutrophils # (Auto) 3.9 x10^3/uL (1.8-7.7) Lymphocytes # (Auto) 1.1 x10^3/uL (1.0-4.8) Monocytes # (Auto) 0.4 x10^3/uL (0.0-1.1) Eosinophils # (Auto) 0.1 x10^3/uL (0.0-0.7) Basophils # (Auto) 0.0 x10^3/uL (0.0-0.2) Erythrocyte Sedimentation Rate 21 (0-25) Sodium Level 141 mmol/L (136-145) Potassium Level 4.1 mmol/L (3.5-5.1) Chloride Level 104 mmol/L (98-107) Carbon Dioxide Level 28 mmol/L (21-32) Anion Gap 9 (6-14) Blood Urea Nitrogen 16 mg/dL (7-20) Creatinine 0.8 mg/dL (0.6-1.0) Estimated GFR (Cockcroft-Gault) 75.0 BUN/Creatinine Ratio 20 (6-20) Glucose Level 107 mg/dL (70-99) H Calcium Level 8.3 mg/dL (8.5-10.1) L Total Bilirubin 0.3 mg/dL (0.2-1.0) Aspartate Amino Transferase (AST) 30 U/L (15-37) Alanine Aminotransferase (ALT) 42 U/L (14-59) Alkaline Phosphatase 98 U/L (46-116) C-Reactive Protein, Quantitative 31.1 mg/L (0-3.3) H Total Protein 7.1 g/dL (6.4-8.2) Albumin 3.8 g/dL (3.4-5.0) Albumin/Globulin Ratio 1.2 (1.0-1.7) Laboratory Tests 08/28/20 10:15 Laboratory Tests 08/28/20 10:15 Vital Signs: Vital Signs Date Time Temp Pulse Resp B/P (MAP) Pulse Ox O2 Delivery O2 Flow Rate FiO2 08/28/20 15:52 81 17 160/68 (98) 95 Room Air 08/28/20 09:49 97.9 97.9 EKG: EKG: [] Heart Score: C/O Chest Pain: No Risk Factors: Risk Factors: DM, Current or recent (<one month) smoker, HTN, HLP, family history of CAD, obesity. Risk Scores: Score 0 - 3: 2.5% MACE over next 6 weeks - Discharge Home Score 4 - 6: 20.3% MACE over next 6 weeks - Admit for Clinical Observation Score 7 - 10: 72.7% MACE over next 6 weeks - Early Invasive Strategies Radiology/Procedures: Radiology/Procedures: [] Course & Med Decision Making: Course & Med Decision Making Prolonged ED stay secondary to multiple calls and attempts to sort out patient's insurance with quality assurance assistant and attempt to transfer. Finally was determined that patient's insurance will not cover any treatment in this hospital. Patient's insurance will only cover [facility], [facility], [facility]. Patient's electrical contacts adjuster Dr.Sam bal is only able to do surgeries at this hospital and in [place], [place]. Patient insurance does not cover any procedures in [place]. Contacted [facility] at 1152, fish housekeeper informed us that she does not have beds but is anticipating she will have [facility] beds at 1400. At [address] Hanley who told me he was going to contact orthopedist or podiatry to see if they have somebody who could operate on patient. Was notified by [facility] fish housekeeper at 1500 at the patient was rejected due to somebody calling about their insurance and receiving wrong information (that the patient's insurance would in fact cover her stay here) due to a misunderstanding in our registration department. Informed the fish housekeeper at that is not true and the patient does not have insurance that covers her admission at this hospital and she is still requesting transfer. pit supervisor at [facility] stated that she will reconsult with the hospitalist, received call back at 1555 that he again rejects the patient. Contacted [facility] immediately after and gave report to transfer line. We had not heard anything back and checked back at 1710 and said there will still be quite a wait. Updated patient. Patient states she has been texting her electrical contacts adjuster during the day and her electrical contacts adjuster was able to found a colleague who operates at [facility] and believes she might be able to set her up in the next few days for surgery outpatient. Patient's toe is still very distal signs of inflammation and per MRI report it only involves the distal phalange E. Agree with patient that she might have some time to schedule this is an outpatient procedure but discussed thorough return precautions. Dragon Disclaimer: Meghna Disclaimer: This electronic medical record was generated, in whole or in part, using a voice recognition dictation system. Departure Departure Impression: Primary Impression: Osteomyelitis of third toe of left foot Disposition: 01 HOME / SELF CARE / HOMELESS Condition: STABLE Referrals: UNKNOWN PCP NAME (PCP) Additional Instructions: Return if fevers, rapidly increasing redness, or other concerns for worsening disease progression. Follow-up with your electrical contacts adjuster in the morning Scripts Hydrocodone Bit/Acetaminophen (HYDROCODONE-APAP 7.5-325 ) 1 Tab Tablet 1 TAB PO PRN Q6HRS PRN for PAIN for 3 Days, #12 TAB 0 Refills Prov: EMERY ROBLES MD 08/28/20 EMERY ROBLES MD Aug 28, 2020 10:04
[2020-08-28] MEDS ORDERED: fentaNYL PF VIAL 100 MCG/2 ML VIAL IVP ONE (10:15)
[2020-08-28 10:37] LABS: BASO % 0 % (0-3); EOS # 0.1 x10^3/uL (0.0-0.7); EOS % 1 % (0-3); HEMATOCRIT 35.6 % (36.0-47.0); HEMOGLOBIN 12.1 g/dL (12.0-15.5); LYMPH # 1.1 x10^3/uL (1.0-4.8); LYMPH % 20 % (24-48); MEAN CORPUSCULAR HEMOGLOBIN 28 pg (25-35); MEAN CORPUSCULAR HGB CONC 34 g/dL (31-37); MEAN CORPUSCULAR VOLUME 83 fL (79-100); MONO # 0.4 x10^3/uL (0.0-1.1); MONO % 7 % (0-9); NEUT # 3.9 x10^3/uL (1.8-7.7); NEUT % 72 % (31-73); PLATELET COUNT 223 x10^3/uL (140-400); RED BLOOD COUNT 4.28 x10^6/uL (3.50-5.40); RED CELL DISTRIBUTION WIDTH 15.4 % (11.5-14.5); WHITE BLOOD COUNT 5.4 x10^3/uL (4.0-11.0)
[2020-08-28 10:48] LABS: CALCIUM 8.3 mg/dL (8.5-10.1); CREATININE 0.8 mg/dL (0.6-1.0); POTASSIUM 4.1 mmol/L (3.5-5.1)
[2020-08-28 10:54] LABS: ALBUMIN 3.8 g/dL (3.4-5.0); ALBUMIN/GLOBULIN RATIO 1.2 (1.0-1.7); C-REACTIVE PROTEIN 31.1 mg/L (0-3.3); TOTAL BILIRUBIN 0.3 mg/dL (0.2-1.0); TOTAL PROTEIN 7.1 g/dL (6.4-8.2)
[2020-08-28] MEDS ORDERED: HYDR-2765 PO (17:29)
[2020-08-28 17:30] VITALS: BP 136/84
== END 2020-08-28 17:36 | disposition home or self-care (01) ==
LOC: ER 09:27
DX: M86.8X7 Other osteomyelitis, ankle and foot (principal); I10 Essential (primary) hypertension; F41.9 Anxiety disorder, unspecified; Z88.0 Allergy status to penicillin
CPT/HCPCS: 36415; 80053; 85025; 85651; 86140; 96374; 99285; J3010